=== PATIENT | female | born 1975 | race African-American/Black ===

== ENCOUNTER 2017-03-11 22:11 | Emergency (ER) | payer SELFPAY ==
[~2017-03-11] VITALS: Ht 160 cm; Wt 72.6 kg
[2017-03-11 22:20] VITALS: BP 164/89
--- NOTE | 2017-03-11 22:36 | PHYS DOC ---
Past History Past Medical History: Hypertension Past Surgical History: Hysterectomy Alcohol Use: Occasionally Drug Use: None Adult General Chief Complaint Chief Complaint: NAUSEA/VOMITING/DIARRHEA HPI HPI Patient is a 41 year old F who presents with nausea and vomiting. Patient states she was heavily drinking last night and drank 1.5 L of pal, some beers , some shots and has spent the day in bed nausea and vomiting unable to keep anything down. Patient was brought in by family because she thinks she has alcohol poisoning. Patient denies any fevers. Patient denies any chest pain or shortness of breath. Patient has no other complaints. Review of Systems Review of Systems GEN: Denies fevers, chills, sweats HEENT: Denies blurred vision, sore throat CV: Denies chest pain RESP: Denies shortness of air, cough GI: n/v NEURO: dizziness MSK: Denies weakness, joint pain/swelling Allergies Allergies Allergies Coded Allergies Type Severity Reaction Last Updated Verified No Known Drug Allergies 03/11/17 No Physical Exam Physical Exam GEN.: No apparent distress. Alert and oriented. HEENT: Head is normocephalic, atraumatic, dry mucous membranes NECK: Supple. LUNGS: CTAB. HEART: RRR, S1, S2 present. Peripheral pulses intact ABDOMEN: Soft, nontender. Positive bowel sounds. EXTREMITIES: Without any cyanosis. NEUROLOGIC: Normal speech, normal tone PSYCHIATRIC: Normal affect, normal mood. SKIN: No ulcerations Current Patient Data Vital Signs Vital Signs Date Time Temp Pulse Resp B/P (MAP) Pulse Ox O2 Delivery O2 Flow Rate FiO2 03/11/17 22:20 98.5 69 20 100 Room Air Lab Results Laboratory Tests Test 03/11/17 22:48 03/11/17 23:20 White Blood Count 11.0 x10^3/uL Red Blood Count 4.61 x10^6/uL Hemoglobin 14.8 g/dL Hematocrit 43.6 % Mean Corpuscular Volume 95 fL Mean Corpuscular Hemoglobin 32 pg Mean Corpuscular Hemoglobin Concent 34 g/dL Red Cell Distribution Width 14.2 % Platelet Count 332 x10^3/uL Neutrophils (%) (Auto) 73 % Lymphocytes (%) (Auto) 20 % Monocytes (%) (Auto) 7 % Eosinophils (%) (Auto) 0 % Basophils (%) (Auto) 1 % Neutrophils # (Auto) 8.0 x10^3uL Lymphocytes # (Auto) 2.2 x10^3/uL Monocytes # (Auto) 0.8 x10^3/uL Eosinophils # (Auto) 0.0 x10^3/uL Basophils # (Auto) 0.1 x10^3/uL Sodium Level 141 mmol/L Potassium Level 3.6 mmol/L Chloride Level 105 mmol/L Carbon Dioxide Level 30 mmol/L Anion Gap 6 Blood Urea Nitrogen 7 mg/dL Creatinine 0.9 mg/dL Estimated GFR (Cockcroft-Gault) 69.3 BUN/Creatinine Ratio 8 Glucose Level 113 mg/dL Calcium Level 9.1 mg/dL Total Bilirubin 0.4 mg/dL Aspartate Amino Transf (AST/SGOT) 12 U/L Alanine Aminotransferase (ALT/SGPT) 15 U/L Alkaline Phosphatase 88 U/L Total Protein 8.5 g/dL Albumin 3.9 g/dL Albumin/Globulin Ratio 0.8 Ethyl Alcohol Level < 10 mg/dL Current Medications Medications (Trade) Dose Ordered Sig/Antonia Route PRN Reason Start Time Stop Time Status Last Admin Dose Admin Ondansetron HCl (Zofran) 4 mg 1X ONCE IV 03/11/17 23:00 03/11/17 23:02 DC 03/11/17 22:55 Metoclopramide HCl (Reglan) 10 mg 1X ONCE IV 03/12/17 00:00 03/12/17 00:01 UNV EKG EKG 2255: Normal sinus rhythm rate of 70 no STEMI [] Radiology/Procedures Radiology/Procedures [] Course & Med Decision Making Course & Med Decision Making Pertinent Labs and Imaging studies reviewed. (See chart for details) ED course: Patient was seen and examined emergency room CBC, CMP alcohol level were ordered 2356: On reexamination the patient has not vomited but still feels little nauseous and would like more nausea medication. Updated patient on blood work and recommended she she not drink so much alcohol. Patient is stable for discharge. MDM: After reviewing the chart, CC/HPI/PMH, physical exam, [lab results], I do not believe the patient has an emergent medical condition warranting further workup and/or admission at this time. I believe the patient is having some last effects from severe alcohol consumption the night prior. I believe the patient is stable for discharge. Recommended short-term follow-up with PCP next one to 2 days. Advised the patient to stop drinking alcohol. Additional verbal discharge instructions were provided to the patient and that if symptoms get worse or any new symptoms arise that are worrisome to the patient she is to return to the emergency room immediately [] Dragon Disclaimer Dragon Disclaimer This chart was dictated in whole or in part using Voice Recognition software in a busy, high-work load, and often noisy Emergency Department environment. It may contain unintended and wholly unrecognized errors or omissions. Departure Departure: Impression: Primary Impression: Alcohol abuse Additional Impression: Nausea and vomiting Disposition: 01 HOME, SELF-CARE Condition: IMPROVED Referrals: PCP,NO (PCP) Patient Instructions: Alcohol Problems, Nausea and Vomiting, [id number] Additional Instructions: Please follow up with your family doctor in the next one to 2 days Scripts Ondansetron (ZOFRAN ODT) 4 Mg Tab.rapdis 1 TAB SL Q8HRS, #10 TAB Prov: AYAD WOODSON DO 03/12/17 Problem Qualifiers AYAD WOODSON DO Mar 11, 2017 22:36
[2017-03-11] MEDS ORDERED: ONDANSETRON PF 4 MG/2 ML VIAL. IV ONE (23:00)
[2017-03-11 23:16] LABS: BASO # 0.1 x10^3/uL (0.0-0.2); BASO % 1 % (0-3); EOS % 0 % (0-3); HEMATOCRIT 43.6 % (36.0-47.0); HEMOGLOBIN 14.8 g/dL (12.0-15.5); LYMPH # 2.2 x10^3/uL (1.0-4.8); LYMPH % 20 % (24-48); MEAN CORPUSCULAR HEMOGLOBIN 32 pg (25-35); MEAN CORPUSCULAR HGB CONC 34 g/dL (31-37); MEAN CORPUSCULAR VOLUME 95 fL (79-100); MONO # 0.8 x10^3/uL (0.0-1.1); MONO % 7 % (0-9); NEUT % 73 % (31-73); PLATELET COUNT 332 x10^3/uL (140-400); RED BLOOD COUNT 4.61 x10^6/uL (3.50-5.40); RED CELL DISTRIBUTION WIDTH 14.2 % (11.5-14.5)
[2017-03-11 23:51] LABS: ALBUMIN 3.9 g/dL (3.4-5.0); ALBUMIN/GLOBULIN RATIO 0.8 (1.0-1.7); CALCIUM 9.1 mg/dL (8.5-10.1); CREATININE 0.9 mg/dL (0.6-1.0); GFR 69.3; POTASSIUM 3.6 mmol/L (3.5-5.1); TOTAL BILIRUBIN 0.4 mg/dL (0.2-1.0); TOTAL PROTEIN 8.5 g/dL (6.4-8.2)
[2017-03-12] MEDS ORDERED: METOCLOPRAMIDE HCL 10 MG/2 ML VIAL. IV ONE
[2017-03-12] MEDS ORDERED: ONDA4TAB10 SL (00:01)
--- NOTE | 2017-03-12 05:28 | EKG ---
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
== END 2017-03-12 00:20 | disposition home or self-care (01) ==
LOC: ER 22:11
DX: F10.10 Alcohol abuse, uncomplicated (principal); R11.2 Nausea with vomiting, unspecified; I10 Essential (primary) hypertension
CPT/HCPCS: 36415; 80053; 85027; 93005; 96374; 96375; 99285; G0480; J2405; J2765

== ENCOUNTER 2017-07-24 11:47 | Emergency (ER) | payer SELFPAY ==
[~2017-07-24] VITALS: Ht 160 cm; Wt 76.2 kg
[~2017-07-24 11:47] MED LIST: ONDA4TAB10 SL
[2017-07-24 13:45] VITALS: BP 155/100
[2017-07-24] MEDS ORDERED: KETOROLAC 60 MG/2 ML VIAL. IM ONE (13:45)
[2017-07-24] MEDS ORDERED: ACET-704 PO (13:45)
[2017-07-24] MEDS ORDERED: CYCL-331 PO (13:45)
--- NOTE | 2017-07-24 13:45 | PHYS DOC ---
Past History Past Medical History: Hypertension Past Surgical History: Hysterectomy Smoking: Cigarettes Alcohol Use: Occasionally Drug Use: None Adult General Chief Complaint Chief Complaint: BACK PAIN OR INJURY HPI HPI 41-year-old right-handed female patient complaining of left posterior shoulder and upper back pain for the last 3 or 4 days as a constant pain that getting worse with movements. Patient denies injury and focal neurodeficit and fever and chills. Patient states he had history of right upper back pain with muscle strain previously. She denies chest pain and shortness of breath and dizziness. Review of Systems Review of Systems Constitutional: Denies fever or chills [] Eyes: Denies change in visual acuity, redness, or eye pain [] HENT: Denies nasal congestion or sore throat [] Respiratory: Denies cough or shortness of breath [] Cardiovascular: No additional information not addressed in HPI [] GI: Denies abdominal pain, nausea, vomiting, bloody stools or diarrhea [] : Denies dysuria or hematuria [] Musculoskeletal: Denies joint pain , reports back pain[] Integument: Denies rash or skin lesions [] Neurologic: Denies headache, focal weakness or sensory changes [] Endocrine: Denies polyuria or polydipsia [] All other systems were reviewed and found to be within normal limits, except as documented in this note. Current Medications Current Medications Current Medications Medications (Trade) Dose Ordered Sig/Antonia Start Time Stop Time Status Last Admin Dose Admin Ketorolac Tromethamine (Toradol) 60 mg 1X ONCE 07/24/17 13:45 07/24/17 13:46 UNV Allergies Allergies Allergies Coded Allergies Type Severity Reaction Last Updated Verified No Known Drug Allergies 03/11/17 No Physical Exam Physical Exam Constitutional: Well developed, well nourished, mild distress, non-toxic appearance. [] HENT: Normocephalic, atraumatic, bilateral external ears normal, oropharynx moist, no oral exudates, nose normal. [] Eyes: PERRLA, EOMI, conjunctiva normal, no discharge. [] Neck: Normal range of motion, no tenderness, supple, no stridor. [] Cardiovascular:Heart rate regular rhythm, no murmur [] Lungs & Thorax: Bilateral breath sounds clear to auscultation [] Abdomen: Bowel sounds normal, soft, no tenderness, no masses, no pulsatile masses. [] Skin: Warm, dry, no erythema, no rash. [] Back: Left upper back muscle spasm without deformity no CVA tenderness. [] Extremities: No tenderness, no cyanosis, no clubbing, ROM intact, no edema. [] Neurologic: Alert and oriented X 3, normal motor function, normal sensory function, no focal deficits noted. [] Psychologic: Affect normal, judgement normal, mood normal. [] Current Patient Data Vital Signs Vital Signs Date Time Temp Pulse Resp B/P (MAP) Pulse Ox O2 Delivery O2 Flow Rate FiO2 07/24/17 12:05 97.7 90 16 96 Room Air EKG EKG [] Radiology/Procedures Radiology/Procedures [] Course & Med Decision Making Course & Med Decision Making Evaluation of the patient in ER showed 41-year-old male patient with complaining of left upper back pain for the last 3 or 4 days that getting worse with movement. Patient treated with Toradol in ER and felt better. Plan discharge patient home with diagnosis of thoracic musculofascial pain. Dragon Disclaimer Dragon Disclaimer This electronic medical record was generated, in whole or in part, using a voice recognition dictation system. Departure Departure: Impression: Primary Impression: Thoracic myofascial strain Additional Impressions: Tobacco abuse Tobacco abuse counseling Disposition: HOME, SELF-CARE (At 1400) Condition: IMPROVED Referrals: PCPNABEEL (PCP) Patient Instructions: Thoracic Strain, [id number] Additional Instructions: Apply ice on your back Follow-up with your primary care physician in 3-5 days Quit smoking Scripts Acetaminophen With Codeine (TYLENOL WITH CODEINE #3 TABLET) 1 Each Tablet 1 TAB PO Q6HRS, #14 TAB Prov: BC BETANCOURT MD 07/24/17 Cyclobenzaprine Hcl (CYCLOBENZAPRINE HCL) 10 Mg Tablet 1 TAB PO TID, #30 TAB Prov: BC BETANCOURT MD 07/24/17 Problem Qualifiers BC BETANCOURT MD Jul 24, 2017 13:45
== END 2017-07-24 13:55 | disposition home or self-care (01) ==
LOC: ER 11:47
DX: S29.012A Strain of muscle and tendon of back wall of thorax, initial encounter (principal); I10 Essential (primary) hypertension; F17.210 Nicotine dependence, cigarettes, uncomplicated; Z71.6 Tobacco abuse counseling; X58.XXXA Exposure to other specified factors, initial encounter; Y93.89 Activity, other specified; Y92.89 Other specified places as the place of occurrence of the external cause; Y99.8 Other external cause status
CPT/HCPCS: 96372; 99283; J1885

== ENCOUNTER 2018-01-07 21:08 | Inpatient (IN) | payer SELFPAY ==
[~2018-01-07] VITALS: Ht 160 cm; Wt 79.1 kg
[~2018-01-07 21:08] MED LIST changes: +ACET-704 PO; +CYCL-331 PO
--- NOTE | 2018-01-07 22:08 | PHYS DOC ---
Past History Past Medical History: Alcoholism, Anxiety, Hypertension Past Surgical History: Hysterectomy Smoking: Cigarettes Additional Smoking Information: 08/08 ppd Alcohol Use: Heavy Additional Alcohol Information: pt states she drinks every other day, usually vodka, beer or wine. Amount varies-per pt. Drug Use: None Adult General Chief Complaint Chief Complaint: ABDOMINAL PAIN HPI HPI Patient is a 42 year old female who presents with complaint of upper abdominal pain over the past 3 days. The patient states that she engaged and then drinking 3 days ago prior to onset of symptoms. Patient states she has history of alcoholism and states that she had avoided use of alcohol for several months but unfortunately had a relapse 3 days ago. The patient states since then she has had abdominal pain. Patient states she has history of pancreatitis and gastritis and states that the alcohol likely exacerbated these symptoms. The patient was seen at another emergency department within the last 2 days and was treated and released. The patient states since treatment she has not gotten any better despite taking Zofran and Protonix. Patient denies any fevers. Patient's had no bloody stools. Patient has had numerous episodes of vomiting and pain is currently rated as 8 out of 10. Patient states the pain is dull, gnawing, and radiates through her upper abdomen. Review of Systems Review of Systems Constitutional: Denies fever or chills [] Eyes: Denies change in visual acuity, redness, or eye pain [] HENT: Denies nasal congestion or sore throat [] Respiratory: Denies cough or shortness of breath [] Cardiovascular: Denies chest pain or edema[] GI: Abdominal pain, nausea, vomiting, denies bloody stools or diarrhea[] : Denies dysuria or hematuria [] Musculoskeletal: Denies back pain or joint pain [] Integument: Denies rash or skin lesions [] Neurologic: Denies headache, focal weakness or sensory changes [] All other systems were reviewed and found to be within normal limits, except as documented in this note. Allergies Allergies Allergies Coded Allergies Type Severity Reaction Last Updated Verified No Known Drug Allergies 03/11/17 No Physical Exam Physical Exam Constitutional: Alert, afebrile, appears in moderate discomfort. [] HENT: Normocephalic, atraumatic, bilateral external ears normal, oropharynx moist, no oral exudates, nose normal. [] Eyes: PERRLA, EOMI, conjunctiva normal, no discharge. [] Neck: Normal range of motion, no tenderness, supple, no stridor. [] Cardiovascular:Heart rate regular rhythm, no murmur [] Lungs & Thorax: Bilateral breath sounds clear to auscultation [] Abdomen: Bowel sounds normal, soft, epigastric tenderness to palpation with guarding, no rebound tenderness, no masses, no pulsatile masses. [] Skin: Warm, dry, no erythema, no rash. [] Back: No tenderness, no CVA tenderness. [] Extremities: No tenderness, no cyanosis, no clubbing, ROM intact, no edema. [] Neurologic: Alert and oriented X 3, normal motor function, normal sensory function, no focal deficits noted. [] Current Patient Data Vital Signs Vital Signs Date Time Temp Pulse Resp B/P (MAP) Pulse Ox O2 Delivery O2 Flow Rate FiO2 01/07/18 21:25 98.3 62 20 98 Room Air Lab Results Laboratory Tests Test 01/07/18 21:53 01/07/18 22:15 01/07/18 23:45 Sodium Level 139 mmol/L Potassium Level 3.0 mmol/L Chloride Level 100 mmol/L Carbon Dioxide Level 30 mmol/L Anion Gap 9 Blood Urea Nitrogen 11 mg/dL Creatinine 1.1 mg/dL Estimated GFR (Cockcroft-Gault) 66.2 BUN/Creatinine Ratio 10 Glucose Level 99 mg/dL Calcium Level 9.1 mg/dL Total Bilirubin 0.7 mg/dL Aspartate Amino Transf (AST/SGOT) 11 U/L Alanine Aminotransferase (ALT/SGPT) 17 U/L Alkaline Phosphatase 88 U/L Total Protein 8.1 g/dL Albumin 3.6 g/dL Albumin/Globulin Ratio 0.8 Lipase 118 U/L White Blood Count 8.7 x10^3/uL Red Blood Count 5.10 x10^6/uL Hemoglobin 17.2 g/dL Hematocrit 49.2 % Mean Corpuscular Volume 96 fL Mean Corpuscular Hemoglobin 34 pg Mean Corpuscular Hemoglobin Concent 35 g/dL Red Cell Distribution Width 14.1 % Platelet Count 336 x10^3/uL Neutrophils (%) (Auto) 55 % Lymphocytes (%) (Auto) 34 % Monocytes (%) (Auto) 9 % Eosinophils (%) (Auto) 1 % Basophils (%) (Auto) 1 % Neutrophils # (Auto) 4.8 x10^3uL Lymphocytes # (Auto) 3.0 x10^3/uL Monocytes # (Auto) 0.8 x10^3/uL Eosinophils # (Auto) 0.0 x10^3/uL Basophils # (Auto) 0.1 x10^3/uL Urine Collection Type Unknown Urine Color Yellow Urine Clarity Clear Urine pH 6.5 Urine Specific [place] 1.010 Urine Protein Neg Urine Glucose (UA) Neg mg/dL Urine Ketones (Stick) 15 mg/dL Urine Blood Trace Urine Nitrite Neg Urine Bilirubin Neg Urine Urobilinogen Dipstick 0.2 mg/dL Urine Leukocyte Esterase Neg Urine RBC 0 /HPF Urine WBC 1-4 /HPF Urine Squamous Epithelial Cells Mod /LPF Urine Bacteria 0 /HPF Current Medications Medications (Trade) Dose Ordered Sig/Antonia Route PRN Reason Start Time Stop Time Status Last Admin Dose Admin Fentanyl Citrate (Fentanyl 2ml Vial) 50 mcg PRN Q15MIN PRN IV PAIN GREATER THAN 3/10 01/07/18 22:30 01/08/18 22:29 01/07/18 22:29 Sodium Chloride 1,000 ml @ 1,000 mls/hr Q1H IV 01/07/18 22:30 01/07/18 23:29 DC 01/07/18 22:29 Prochlorperazine Edisylate (Compazine) 5 mg 1X ONCE IV 01/07/18 22:30 01/07/18 22:31 DC 01/07/18 22:28 Pantoprazole Sodium (Protonix Vial) 40 mg 1X ONCE IVP 01/07/18 22:30 01/07/18 22:31 DC 01/07/18 22:29 Ondansetron HCl (Zofran Odt) 4 mg 1X ONCE PO 01/08/18 00:15 01/08/18 00:16 DC 01/08/18 00:15 EKG EKG Not performed[] Radiology/Procedures Radiology/Procedures Not performed[] Course & Med Decision Making Course & Med Decision Making Pertinent Labs and Imaging studies reviewed. (See chart for details) Patient was given IV fluids, fentanyl, Compazine, and Zofran. Despite treatment , the patient states that her nausea has not improved and her abdominal pain remains. Patient does show a decrease in potassium levels but no other significant findings. Given lack of adequate control symptoms and inability to tolerate PO at this time, the patient will need admission for further treatment. I spoke with Dr. Murphy who accepted care of patient in hospital.[] Dragon Disclaimer Dragon Disclaimer This electronic medical record was generated, in whole or in part, using a voice recognition dictation system. Departure Departure: Impression: Primary Impression: Intractable abdominal pain Additional Impression: Intractable nausea and vomiting Disposition: ADMITTED INPATIENT Admitting Physician: Juan Murphy Condition: STABLE Referrals: PCP,NO (PCP) Problem Qualifiers Additional Impression: Intractable nausea and vomiting Vomiting type: unspecified Qualified Codes: R11.2 - Nausea with vomiting, unspecified ALMAZ GREEN MD Jan 07, 2018 22:08
[2018-01-07] MEDS ORDERED: PROCHLORPERAZINE 10 MG/2 ML VIAL. IV ONE (22:30)
[2018-01-07] MEDS ORDERED: PANTOPRAZOLE IV 40 MG VIAL. IVP ONE (22:30)
[2018-01-07] MEDS ORDERED: IV NORMAL SALINE 1,000ML 1,000 ML IV SCH (22:30)
[2018-01-07 22:31] LABS: BASO # 0.1 x10^3/uL (0.0-0.2); BASO % 1 % (0-3); EOS % 1 % (0-3); HEMATOCRIT 49.2 % (36.0-47.0); HEMOGLOBIN 17.2 g/dL (12.0-15.5); LYMPH % 34 % (24-48); MEAN CORPUSCULAR HEMOGLOBIN 34 pg (25-35); MEAN CORPUSCULAR HGB CONC 35 g/dL (31-37); MEAN CORPUSCULAR VOLUME 96 fL (79-100); MONO # 0.8 x10^3/uL (0.0-1.1); MONO % 9 % (0-9); NEUT # 4.8 x10^3uL (1.8-7.7); NEUT % 55 % (31-73); PLATELET COUNT 336 x10^3/uL (140-400); RED CELL DISTRIBUTION WIDTH 14.1 % (11.5-14.5); WHITE BLOOD COUNT 8.7 x10^3/uL (4.0-11.0)
[2018-01-07 22:47] LABS: ALBUMIN 3.6 g/dL (3.4-5.0); ALBUMIN/GLOBULIN RATIO 0.8 (1.0-1.7); CALCIUM 9.1 mg/dL (8.5-10.1); CREATININE 1.1 mg/dL (0.6-1.0); GFR 66.2; TOTAL BILIRUBIN 0.7 mg/dL (0.2-1.0); TOTAL PROTEIN 8.1 g/dL (6.4-8.2)
[2018-01-08] MEDS ORDERED: ONDANSETRON ODT 4 MG TAB.RAPDIS PO ONE (00:15)
[2018-01-08 00:26] LABS: BACTERIA,URINE 0 /HPF (0-FEW); BILIRUBIN,URINE NEG (NEG); CLARITY,URINE CLEAR; COLOR,URINE YELLOW; GLUCOSE,URINE NEG (NEG); NITRITE,URINE NEG (NEG); RBC,URINE 0 /HPF (0-2); SQUAMOUS EPITHELIAL CELL,UR MOD /LPF; UROBILINOGEN,URINE 0.2 mg/dL (0.2 mg/dL)
[2018-01-08] MEDS ORDERED: POTASSIUM CL 20MEQ D5-0.45NACL 1,000 ML IV ONE (00:45)
[2018-01-08] MEDS ORDERED: ONDANSETRON PF 4 MG/2 ML VIAL. IV PRN (00:45)
[2018-01-08 01:45] VITALS: BP 168/95
[2018-01-08] MEDS ORDERED: Lexapro (02:51)
[2018-01-08] MEDS ORDERED: LISI-334 PO (02:51)
[2018-01-08 04:11] VITALS: BP 125/78
[2018-01-08] MEDS: PANTOPRAZOLE IV 40 MG VIAL. IVP SCH (07:51)
[2018-01-08] MEDS ORDERED: DICYCLOMINE HCL 10 MG CAPSULE PO ONE (10:00)
[2018-01-08] MEDS: ONDANSETRON ODT 4 MG TAB.RAPDIS PO PRN ×2 (13:03→21:01)
[2018-01-08] MEDS: SUCRALFATE 1 GM/10 ML ORAL.SUSP. PO SCH ×2 (16:56→21:01)
[2018-01-08] MEDS: POTASSIUM CL 40MEQ D5-0.45NACL 1,000 ML IV SCH (18:24)
--- NOTE | 2018-01-08 19:27 | HP ---
ADMIT DATE: 01/08/2018 HISTORY OF PRESENT ILLNESS: The patient is a 42-year-old -[place] female patient who came to the Emergency Room with a complaint of upper abdominal pain going on for the last 3 days. The patient stated that she is engaged and she had a history of alcoholism and stated that she has avoided use of alcohol for several months, but unfortunately she relapsed about 3 days ago and drank half a pint of vodka and 2 beers and since then she has this abdominal pain that she stays mostly in the epigastric area radiating to the back associated with nausea, vomiting, and abdominal pain. She was seen twice at the [facility] and was discharged only to come back to our Emergency Room. She was given Zofran and Protonix without much improvement and has had numerous episodes of vomiting and pain and her pain when arrived to the Emergency Room was rated about 8/10, dull, annoying and radiates to the back of her abdomen. She was investigated in the Emergency Room and her lab work showed as clearly dehydrated. Her H and H was 17 and 49. She was also hypokalemic with a potassium of 3, however, serum lipase was normal at 118 and was admitted for rehydration to replenish her potassium and for pain management. PAST MEDICAL HISTORY: Significant for gastritis and pancreatitis. She is also known to have hypertension. PAST SURGICAL HISTORY: Significant for total abdominal hysterectomy, bilateral salpingo-oophorectomy. ALLERGIES: She has no known drug allergies. MEDICATIONS: She is currently on following medications: She is on lisinopril/hydrochlorothiazide and Lexapro. FAMILY HISTORY: She has 2 brothers and 2 sisters, all older. Father is alive, but does not know of any medical problem. Her mother is alive at age of 64 and has hypertension and CVA. SOCIAL HISTORY: She is engaged. She has children from previous marriage. She smokes half to 1 pack a day, drinks alcohol, does not use any drugs. She takes care of her grandchild. 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 REVIEW OF SYSTEMS: The patient denied any blurring of vision, cataract, glaucoma or macular degeneration. Denied any earache, tinnitus or sensorineural deafness. Denied any nosebleeds, stuffy nose or postnasal drip. Denied any sore throat, sore tongue, toothache, hoarseness of voice or difficulty swallowing. Did complain of nausea and vomiting. Denied any diarrhea. Denied any hematemesis, melena or hematochezia. Denied any dysuria, frequency, or hematuria. Denied any chest pain, shortness of breath, orthopnea or paroxysmal nocturnal dyspnea. PHYSICAL EXAMINATION: GENERAL: On arrival to the Emergency Room, she looked well and was clearly in no apparent respiratory distress. No pallor, jaundice, cyanosis, or thyromegaly. No jugular venous distension. No lower limb edema. VITAL SIGNS: Her heart rate was 62, blood pressure was 168/95, temperature was 98.3, respiratory rate 20, and oxygen saturation was 98%. HEAD, EYES, EARS, NOSE AND THROAT: Showed normocephalic, atraumatic. NECK: Supple. HEART: Showed normal first and second heart sounds with no gallop, rub or murmur. CHEST: Clear to auscultation. No crepitation or rhonchi. ABDOMEN: Distended, soft, nontender. No guarding or rigidity. No organomegaly. Hernial orifices intact. Bowel sounds normal. NEUROLOGIC: She was awake, alert, responding appropriately. Cranial nerves intact. EXTREMITIES: She moves extremities without difficulty. She ambulates without assistance or assistive devices. LABORATORY DATA: Showed a serum sodium of 139, potassium 3, chloride 100, bicarbonate 30, anion gap of 9, BUN 11, creatinine 1.1, estimated GFR was 66 mL per minute. Her glucose was 99, calcium was 9.1. Total bilirubin, AST, ALT, alkaline phosphatase were normal. Total protein 8.1, albumin was 3.6 and lipase was 118. Her white cell count was 8700, hemoglobin 17.2, hematocrit 49, MCV 96, and platelet count of 356,000. Her urinalysis showed the urine was yellow, clear with a pH of 6.5, specific gravity of 1.010. The urine was negative for protein and glucose. There was small amount of ketones, trace of blood, negative for nitrite or leukocyte esterase with 0 rbc's, 1-4 wbc's, no bacteria. IMPRESSION: Alcohol induced gastritis. PLAN: To continue with IV fluid and replenish her potassium. Continue with pain management. Continue with IV Protonix and repeat her lab work tomorrow. CLAUDY CBAAN MD DR: GRAY/maurizio JOB#: [id number] / [id number]
[2018-01-08 20:00] VITALS: BP 179/97
[2018-01-08 23:37] VITALS: BP 183/96
[2018-01-09 04:00] VITALS: BP 199/100
[2018-01-09] MEDS: ONDANSETRON ODT 4 MG TAB.RAPDIS PO PRN (06:20)
[2018-01-09 06:38] LABS: BASO % 0 % (0-3); EOS # 0.1 x10^3/uL (0.0-0.7); EOS % 1 % (0-3); HEMATOCRIT 44.2 % (36.0-47.0); HEMOGLOBIN 15.4 g/dL (12.0-15.5); LYMPH # 3.6 x10^3/uL (1.0-4.8); LYMPH % 36 % (24-48); MEAN CORPUSCULAR HEMOGLOBIN 34 pg (25-35); MEAN CORPUSCULAR HGB CONC 35 g/dL (31-37); MEAN CORPUSCULAR VOLUME 97 fL (79-100); MONO # 0.9 x10^3/uL (0.0-1.1); MONO % 10 % (0-9); NEUT # 5.3 x10^3uL (1.8-7.7); NEUT % 53 % (31-73); PLATELET COUNT 289 x10^3/uL (140-400); RED BLOOD COUNT 4.58 x10^6/uL (3.50-5.40); RED CELL DISTRIBUTION WIDTH 13.8 % (11.5-14.5)
[2018-01-09 06:49] LABS: ALBUMIN/GLOBULIN RATIO 0.8 (1.0-1.7); CALCIUM 8.3 mg/dL (8.5-10.1); CREATININE 0.9 mg/dL (0.6-1.0); GFR 83.5; POTASSIUM 3.2 mmol/L (3.5-5.1); TOTAL BILIRUBIN 0.7 mg/dL (0.2-1.0); TOTAL PROTEIN 6.7 g/dL (6.4-8.2)
[2018-01-09] MEDS ORDERED: HYDROcodone/APAP 5/325MG 1 TAB TABLET PO PRN (07:30)
[2018-01-09] MEDS ORDERED: HYDR12.53 PO (07:31)
[2018-01-09] MEDS: POTASSIUM CL 40MEQ D5-0.45NACL 1,000 ML IV SCH (07:35)
[2018-01-09] MEDS: SUCRALFATE 1 GM/10 ML ORAL.SUSP. PO SCH ×2 (07:36→11:13)
[2018-01-09] MEDS: PANTOPRAZOLE IV 40 MG VIAL. IVP SCH (07:36)
[2018-01-09 08:43] VITALS: BP 187/95
[2018-01-09] MEDS ORDERED: hydroCHLOROthiazide 12.5 MG CAPSULE PO SCH (09:00)
[2018-01-09] MEDS ORDERED: LISINOPRIL 20 MG TABLET PO SCH (09:00)
[2018-01-09] MEDS ORDERED: POTASSIUM CHLORIDE 20 MEQ TABLET.ER. PO ONE (11:00)
[2018-01-09] MEDS ORDERED: amLODIPine BESYLATE 10 MG TABLET PO SCH (11:45)
[2018-01-09] MEDS ORDERED: HYDR-2758 PO (14:06)
--- NOTE | 2018-01-09 14:44 | DS ---
DATE OF DISCHARGE: 01/09/2018 HOSPITAL COURSE: The patient is a 42-year-old -[place] female patient, who was admitted with intractable nausea and vomiting and abdominal pain. She has been unable to tolerate anything by mouth and has been vomiting the whole day yesterday. Today, we started her on clear liquid diet and has been able to tolerate her food and medication, has had no further nausea and vomiting. No abdominal pain and decision was made to discharge her home. PHYSICAL EXAMINATION: GENERAL: On examining her today, she looked well and was clearly in no apparent respiratory distress, pale, but no jaundice, cyanosis, or thyromegaly. No jugular venous distension. No lower limb edema. VITAL SIGNS: Her heart rate was 80, blood pressure was 150/90, temperature was 98.4, respiratory rate was 18 and oxygen saturation was 96%. HEAD, EYES, EARS, NOSE AND THROAT: Showed normocephalic, atraumatic. NECK: Supple. HEART: Showed normal first and second heart sounds. No gallop, rub or murmur. CHEST: Clear to auscultation. No crepitation or rhonchi. ABDOMEN: Distended, soft, nontender. No guarding or rigidity. No organomegaly. All hernial orifice intact. Bowel sounds normal. NEUROLOGIC: She was awake, alert, responding appropriately. All cranial nerves intact. EXTREMITIES: She moves extremities without difficulty. She ambulates without assistance or assistive devices. LABORATORY DATA: Showed a white cell count 10,000, hemoglobin 15, hematocrit 44, MCV 97 and platelet count 289,000. Her serum sodium was 140, potassium 3.2, chloride 105, bicarbonate 27, anion gap of 8, BUN 5, creatinine 0.9, estimated GFR was 83 mL per minute. Her glucose was 96, calcium was 8.3. Total bilirubin, AST, ALT, alkaline phosphatase were normal. Her total protein was 6.7, albumin 3 and serum lipase was 143. DISCHARGE MEDICATIONS: She was discharged home to continue on her hydrochlorothiazide 12.5 mg once a day, lisinopril 20 mg once a day and 5/325 one tablet every 6 hours. FINAL DISCHARGE DIAGNOSES: Intractable nausea, vomiting, alcoholism, alcohol-induced gastritis, hypertension, anxiety. CLAUDY CABAN MD DR: GRAY/maurizio JOB#: [id number] / [id number]
[2018-01-10] MEDS ORDERED: amLODIPine BESYLATE 10 MG TABLET PO SCH (09:00)
== END 2018-01-09 14:35 | disposition home or self-care (01) | DRG 392 ==
LOC: ER 21:08 → ICU 01-08 00:28
PROVIDERS: ADMIT Internal Medicine; ATTEND Internal Medicine
DX: K29.20 Alcoholic gastritis without bleeding (principal); E86.0 Dehydration; E87.6 Hypokalemia; F10.20 Alcohol dependence, uncomplicated; F41.9 Anxiety disorder, unspecified; I10 Essential (primary) hypertension; F17.210 Nicotine dependence, cigarettes, uncomplicated; Z90.710 Acquired absence of both cervix and uterus; Z90.79 Acquired absence of other genital organ(s); Z90.722 Acquired absence of ovaries, bilateral; Z82.49 Family history of ischemic heart disease and other diseases of the circulatory system; Z82.3 Family history of stroke
CPT/HCPCS: 36415; 80053; 81001; 83690; 85025; 87641; 96361; 96374; 96375; 99406; C9113; J0780; J3010; J7042; Q0162; 99285-25; J7030